=== PATIENT | male | born 1935 | race Caucasian/White ===

== ENCOUNTER 2018-04-08 10:55 | Outpatient (CLI) | payer OTHER | END 2018-04-08 10:59 | disposition home or self-care (01) | LOC: LAB 10:55 | DX: R10.84 Generalized abdominal pain (principal); Z51.81 Encounter for therapeutic drug level monitoring ==

== ENCOUNTER 2018-04-09 09:14 | Outpatient (CLI) | payer OTHER | END 2018-04-09 17:00 | disposition home or self-care (01) | LOC: TOM 09:14 | DX: R10.84 Generalized abdominal pain (principal); R93.5 Abnormal findings on diagnostic imaging of other abdominal regions, including retroperitoneum; K21.9 Gastro-esophageal reflux disease without esophagitis; K29.90 Gastroduodenitis, unspecified, without bleeding; K83.8 Other specified diseases of biliary tract; K57.90 Diverticulosis of intestine, part unspecified, without perforation or abscess without bleeding ==

== ENCOUNTER 2018-04-14 07:12 | Outpatient (CLI) | payer OTHER | END 2018-04-14 15:35 | disposition home or self-care (01) | LOC: MRI 07:12 | DX: K83.8 Other specified diseases of biliary tract (principal); K80.20 Calculus of gallbladder without cholecystitis without obstruction; R93.5 Abnormal findings on diagnostic imaging of other abdominal regions, including retroperitoneum; K29.90 Gastroduodenitis, unspecified, without bleeding | CPT/HCPCS: 74182 ==